=== PATIENT | female | born 1970 | race Caucasian/White ===

== ENCOUNTER → 2020-11-01 | Day surgery (SDC) | payer OTHER ==
[~2020-11-01] VITALS: Ht 152.4 cm; Wt 53.1 kg
[~2020-11-01] MED LIST: EFFEXOR 37.537.5 MG PO; EFFEXOR PO; NORCO 7.5-3251 EACH PO; RESTORIL PO; RESTORIL30 MG PO
[2020-11-01 06:42] LABS: HEMOGLOBIN 12.8 gm/dl (12.3-15.3); RED BLOOD COUNT 3.99 M/UL (4.00-5.10); WHITE BLOOD COUNT 5.9 K/UL (4.5-11.0)
[2020-11-01 07:00] LABS: BUN/CREATININE RATIO 14 (0-10)
== END | disposition home or self-care (01) ==
LOC: OR 06:08
PROVIDERS: Orthopaedic Surgery
DX: M65.311 Trigger thumb, right thumb (principal); F17.219 Nicotine dependence, cigarettes, with unspecified nicotine-induced disorders; F41.9 Anxiety disorder, unspecified; Z82.49 Family history of ischemic heart disease and other diseases of the circulatory system; Z79.899 Other long term (current) drug therapy
CPT/HCPCS: 36415; 80048; 85025; J0690; J1100; J2001; J2250; J2405; J2704; J3010; J7030; J7120